=== PATIENT | male | born 1930 | race Caucasian/White ===

== ENCOUNTER 2019-03-28 14:12 | Emergency (ER) | payer MEDICARE, BC ==
[2019-03-28] MEDS ORDERED: Albuterol/Ipratropium 3.0-0.5 MG/3 ML Neb Soln NEB ONE (14:20)
[2019-03-28] MEDS ORDERED: Sodium Chloride 0.9% 1,000 ML IV ONE ×2 (14:45→17:24)
[2019-03-28] MEDS ORDERED: Sodium Chloride 0.9% 10 ML Syringe IV PRN (14:57)
[2019-03-28] MEDS ORDERED: cefTRIAXone 2 GM Vial IVPUSH ONE (14:58)
[2019-03-28] MEDS ORDERED: Acetaminophen 650 MG Supp RECTAL ONE (15:07)
[2019-03-28] MEDS ORDERED: Azithromycin 500 MG in Sodium Chloride 0.9% 250 ML IV ONE (15:08)
--- NOTE | 2019-03-28 15:22 | CR ---
[id number] RAD/RAD Chest PA or AP 1V EXAM: SINGLE VIEW CHEST. INDICATION: CHEST PAIN. SHORTNESS OF BREATH COMPARISON: NO PREVIOUS SIMILAR EXAM IS AVAILABLE FINDINGS: There is no pneumonia or edema. The cardiac silhouette is enlarged. The defibrillator is seen. IMPRESSION: NO PNEUMONIA OR EDEMA. Naresh Ramirez MD 03/28/19 3547 Thank you for allowing us to participate in the care of your patient.
[2019-03-28 15:30] LABS: CHLORIDE,CL 104 mmol/L (98-107); SODIUM,NA 143 mmol/L (136-145)
[2019-03-28 15:31] LABS: ANION GAP 13.9 mmol/L (10-20)
[2019-03-28] MEDS ORDERED: Furosemide 40 MG/4 ML VIAL IV ONE (15:39)
--- NOTE | 2019-03-28 16:46 | EDM.PDOC ---
ED HPI GENERAL MEDICAL PROBLEM - General Chief Complaint: Respiratory Problem Stated Complaint: shortness of breath, chest pain, abdominal pressure Time Seen by Provider: 03/28/19 14:25 Source of Information: Reports: Patient, Significant Other History Limitations: Reports: Respiratory Distress - History of Present Illness INITIAL COMMENTS - FREE TEXT/NARRATIVE: Pt arrived with his per private vehicle. Approximately 45 minutes prior to arrival he developed sudden onset of shortness of breath. He was eating chokecherries when he suddenly started having breathing difficulty. He had increasing problems and his brought him in per PV. Upon arrival he was dusky with labored breathing. He was shaking. His face was gio with dusky lips. He had difficulty speaking. He was transported to ER per wheelchair from car. I was summoned from adjacent room due to his SOB. Upon my arrival he was in severe distress. He was dyspneic and agitated and c/o pain; chest pain and abdominal pain. His face was gio, he was tachypneic with RR 44. Lung sounds were diminished with crackles heard most prominently in LLL. Later when he was sitting up he had crackles present through most posterior lobes. Abdomen was distended, firm. It was tender to palpation. BS diminished. No definite abdominal bruit. Legs with 4+ pitting edema in legs to level above knees. Pulses were palpable bilaterally. Skin color pale to feet but feet warm with capillary refill 3 seconds. He was initially not very verbal and likely confused. He then had large semi incontinent BM. This resolved his abdominal pain completely. His respiratory distress decreased. (He also had nebulizer). For the remainder of visit he was cooperative, in good spirits and for the most part oriented and appropriate. His respiratory distress improved. After he was up to commode for BM he had increased tachycardia. BP became hypotensive. EKG questionably A Fibrillation rate 150s. He denies chest pain. Order was given for wide open fluid boluses. Temp remained increased. (Please see NN for vitals) Considerations included pulmonary edema, PE, sepsis, aortic aneurism. Called [facility] Dr. Kahn for recommendations. He recommended sepsis protocol with 30 ml/kg fluid bolus, Rocephin and zithromax. These orders were given. Labs reviewed and were mostly unremarkable. CXR portable was reviewed which was poor quality due to body habitus and positioning. EKG shows ectopic sinus rhythm, ? a Fib. He was transferred to room with video for [facility] with Dr. Arley Kahn. At this point it was noted that fluids infused only totaled 250 ml which was initial bolus requested. He had received Rocephin 2 gr and zithromax 250 mg. After this infusion it was noted that he was more tachycardic and hypotensive so Zithromax was held. These antibiotics were chosen assuming respiratory source as pt was coughing up large amounts of discolored sputum. He had been given 40 mg IV lasix due to crackles, respiratory distress, CHF. To this point he had approx 250 ml of urine output. Transfer was arranged with [facility], Dr. Singh who accepted care of pt. Dr Arley Kahn per [facility] provided guidance including Norepinephrine dosing. Patient remained oriented and conversive throughout despite very low blood pressures. Manual BPs were also very low. (See vital record). With norepi drip and fluid he did have some improvement in his pulse and BP. Paramedics were now on scene and IV sites were changed due to infiltration. Patient was transferred per [facility] with hypotension and tachycardia which was improved slightly. Pt condition however was improved over initial evaluation. Pt conversive, appropriate and oriented X 3. Patient transferred in this condition per [facility] to [facility]. Onset: Today, Sudden Duration: Getting Worse Location: Reports: Chest, Abdomen Severity: Severe Improves with: Reports: None Worsens with: Reports: Movement Context: Reports: Activity Associated Symptoms: Reports: Chest Pain, cough w sputum, Shortness of Breath, Weakness Left Abdomen Pain Score (Numeric/FACES): 2 - Related Data Allergies Allergy/AdvReac Type Severity Reaction Status Date / Time lisinopril Allergy Cough Verified 03/28/19 19:38 pantoprazole [From Protonix] Allergy Other Verified 03/28/19 19:38 sitagliptin [From Januvia] Allergy Other Verified 03/28/19 19:38 spironolactone Allergy Other Verified 03/28/19 19:38 [From Aldactone] Home Meds: Home Meds Norepinephrine Bit/0.9 % NaCl [Norepinephr 4 mg/250-0.9% NaCl] 4 mg IV DAILY # 250 plast..bag 03/28/19 [Rx] ED ROS GENERAL - Review of Systems Review Of Systems: Unable To Obtain Constitutional: Reports: No Symptoms HEENT: Reports: No Symptoms Respiratory: Reports: Shortness of Breath, Cough, Sputum Cardiovascular: Reports: Chest Pain, Dyspnea on Exertion GI/Abdominal: Reports: Abdominal Pain, Distension : Reports: No Symptoms, Frequency Musculoskeletal: Reports: No Symptoms Skin: Reports: No Symptoms Neurological: Reports: No Symptoms Psychiatric: Reports: No Symptoms Hematologic/Lymphatic: Reports: No Symptoms Immunologic: Reports: No Symptoms ED EXAM, GENERAL - Physical Exam Exam: See Below Exam Limited By: No Limitations General Appearance: Anxious, Severe Distress, Obese Ears: Normal External Exam Nose: Normal Inspection Throat/Mouth: Normal Inspection Head: Atraumatic, Normocephalic Respiratory/Chest: Respiratory Distress, Decreased Breath Sounds, Crackles ( crackles scattered posterior mid to lower lobes bilaterally; ), Accessory Muscle Use, Other (decreased air exchange) Cardiovascular: Systolic Murmur, Irregularly Irregular Peripheral Pulses: 1+: Dorsalis Pedis (L), Dorsalis Pedis (R) GI/Abdominal: Distended, Guarding, Tender Extremities: No Pedal Edema Neurological: Inattentive Psychiatric: Anxious Skin Exam: Warm, Erythema Lymphatic: No Adenopathy Sepsis Event Note - Evaluation Sepsis Screening Result: Possible Sepsis Risk Current Stage of Sepsis: Severe Sepsis Possible Source of Sepsis: Pulmonary - Focused Exam Respiratory Effort Without Exertion: Abdominal Breathing, Labored Date Exam was Performed: 04/02/19 Time Exam was Performed: 13:49 EKG INTERPRETATION Rhythm: A-Fib Course - Vital Signs Text/Narrative:: Blood pressure initially high with mild tachycardia. He was extremely anxious and agitated and was tachypneic. He was restless; unable to lie still. O2 sat improved with nebulizer and oxygen. He was shaking which worsened. Temp increased to 101.6 by time of my exam. At this point he met Sepsis criteria. Prior to this there was no indication of history of infection. Temp was 101.6 at 1430. At this point he met sepsis criteria so Sepsis protocol was initiated. I conferred with [facility] Dr. Kahn and received recommendations. I conferred with [facility] sugar controller ID doctor and received recommendations. He was given Rocephin 2 gr IV as he did not have any indication of infection. After Rocephin was infused and fluids initiated he was up for a very large bowel movement which was partly in his pants and on the floor. He urinated on the floor. He was more settled after this bowel movement and his abdomen was less distended. He was given Acetaminophen suppository. He had increasing tachycardia and hypotension. (see flow sheet). However, he was now oriented and conversive and reports how much better he felt. He states that when he came in he was about 1" from dying. EKG shows A fib with rate in 150s. BP very low but he was alert, oriented and talking. His temp improved and then began to rise. He was coughing and spitting up sputum that caused him to choke or gag. He did report that he aspirates on food and coughs when eating at times. Patients blood pressure and tachycardia continued. I called [facility] and had pt transferred to video room. He remained stable, oriented and talkative throughout this time. He expressed gratitude that he felt so much better - even when BP was reading 70/38. Please refer to [facility] flow sheet and nurse notes for details of his vitals and treatment during this time. He was transported to [facility] by [facility] with Dr. Singh accepting care of pt. I conferred with him regarding treatment as well. His vitals remained critical including his tachypnea at time of transfer. He was on Norepinephrine drip. Pulmonary embolism was considered but seemed less likely due to his treatment with Eliquis. reports he is compliant with his medications. He was thought to more likely have community acquired pneumonia as he has not been hospitalized, on antibiotics or steroids for quite some time. His was present throughout his stay and was kept apprised and given emotional support throughout. Aortic aneurism was considered. CT was not obtained due to his critical condition. Following his bowel movement he remained pain free. He was no longer restless. He had brief period of being confused after moved to video room and thought he was in [place]. Last Recorded V/S: Last Vital Signs Temp 101.2 F H 03/28/19 16:00 Pulse 144 H 03/28/19 16:40 Resp 30 H 03/28/19 16:30 BP 88/62 L 03/28/19 16:40 Pulse Ox 96 03/28/19 16:20 - Orders/Labs/Meds Labs: Laboratory Tests 03/28/19 03/28/19 03/28/19 Range/Units 14:28 15:05 15:13 WBC 4.5 (4.0-10.0) x10^3/uL RBC 4.56 (4.5-6.0) x10^6/uL Hgb 14.3 (14.0-18.0) g/dL Hct 44.5 (40.0-52.0) % MCV 97.6 H (78.0-93.0) fL MCH 31.4 (26.0-32.0) pg MCHC 32.1 (32.0-36.0) g/dL RDW Coeff of Svitlana 15.3 H (10.0-15.0) % Plt Count 130 (130-400) x10^3/uL Neut % (Auto) 93.0 H (50.0-80.0) % Lymph % (Auto) 5.8 L (25.0-50.0) % [place] % (Auto) 0.4 L (2.0-11.0) % Eos % (Auto) 0.4 (0.0-4.0) % Baso % (Auto) 0.4 (0.2-1.2) % POC ABG pH 7.359 (7.35-7.45) POC ABG pCO2 36 (35-45) mmHG POC ABG pO2 88 (80-105) mmHG POC ABG HCO3 21 L (22-26) mmol/L POC ABG Total CO2 22 L (23-27) mmol/L POC ABG O2 Sat 96 (95-98) % POC ABG Base Excess -5 L (-2-3) mmol/L POC FiO2 1.00 Sodium (136-145) mmol/L Potassium (3.5-5.1) mmol/L Chloride (98-107) mmol/L Carbon Dioxide (21-32) mmol/L Anion Gap (10-20) mmol/L BUN (7-18) mg/dL Creatinine (0.70-1.30) mg/dL Est Cr Clr Drug Dosing Estimated GFR (MDRD) Glucose (74-106) mg/dL POC Glucose 92 (74-106) mg/dL Lactic Acid (0.4-2.0) mmol/L Calcium (8.5-10.1) mg/dL Corrected Calcium (8.5-10.1) mg/dL Total Bilirubin (0.2-1.0) mg/dL AST (15-37) U/L ALT (16-63) U/L Alkaline Phosphatase (46-116) U/L Troponin I (<=0.056) ng/mL C-Reactive Protein (<=0.9) mg/dL NT-Pro-B Natriuret Pep (<=450) pg/mL Total Protein (6.4-8.2) g/dL Albumin (3.4-5.0) g/dL Globulin Albumin/Globulin Ratio Lipase (73-393) U/L Urine Color (YELLOW) Urine Appearance (CLEAR) Urine pH (5.0-8.0) Ur Specific [place] Urine Protein (NEGATIVE) mg/dL Urine Glucose (UA) (NEGATIVE) mg/dL Urine Ketones (NEGATIVE) mg/dL Urine Occult Blood (NEGATIVE) Urine Nitrite (NEGATIVE) Urine Bilirubin (NEGATIVE) Urine Urobilinogen (0.2) EU/dL Ur Leukocyte Esterase (NEGATIVE) Urine RBC (NOT SEEN) /HPF Urine WBC (NOT SEEN) /HPF Ur Squamous Epith Cells (NEGATIVE) /HPF Urine Bacteria (NEGATIVE) /HPF Urine Mucus (NEGATIVE) /LPF 03/28/19 03/28/19 03/28/19 Range/Units 15:13 15:13 15:55 WBC (4.0-10.0) x10^3/uL RBC (4.5-6.0) x10^6/uL Hgb (14.0-18.0) g/dL Hct (40.0-52.0) % MCV (78.0-93.0) fL MCH (26.0-32.0) pg MCHC (32.0-36.0) g/dL RDW Coeff of Svitlana (10.0-15.0) % Plt Count (130-400) x10^3/uL Neut % (Auto) (50.0-80.0) % Lymph % (Auto) (25.0-50.0) % [place] % (Auto) (2.0-11.0) % Eos % (Auto) (0.0-4.0) % Baso % (Auto) (0.2-1.2) % POC ABG pH (7.35-7.45) POC ABG pCO2 (35-45) mmHG POC ABG pO2 (80-105) mmHG POC ABG HCO3 (22-26) mmol/L POC ABG Total CO2 (23-27) mmol/L POC ABG O2 Sat (95-98) % POC ABG Base Excess (-2-3) mmol/L POC FiO2 Sodium 143 (136-145) mmol/L Potassium 3.9 (3.5-5.1) mmol/L Chloride 104 (98-107) mmol/L Carbon Dioxide 29 (21-32) mmol/L Anion Gap 13.9 (10-20) mmol/L BUN 16 (7-18) mg/dL Creatinine 1.6 H (0.70-1.30) mg/dL Est Cr Clr Drug Dosing TNP Estimated GFR (MDRD) 41 Glucose 92 (74-106) mg/dL POC Glucose (74-106) mg/dL Lactic Acid 3.0 H* (0.4-2.0) mmol/L Calcium 8.8 (8.5-10.1) mg/dL Corrected Calcium 9.04 (8.5-10.1) mg/dL Total Bilirubin 1.0 (0.2-1.0) mg/dL AST 28 (15-37) U/L ALT 34 (16-63) U/L Alkaline Phosphatase 149 H (46-116) U/L Troponin I < 0.017 (<=0.056) ng/mL C-Reactive Protein 0.9 (<=0.9) mg/dL NT-Pro-B Natriuret Pep 2535 H (<=450) pg/mL Total Protein 7.3 (6.4-8.2) g/dL Albumin 3.7 (3.4-5.0) g/dL Globulin 3.6 Albumin/Globulin Ratio 1.03 Lipase 34 L (73-393) U/L Urine Color Light yellow (YELLOW) Urine Appearance Slightly cloudy H (CLEAR) Urine pH 5.5 (5.0-8.0) Ur Specific [place] 1.015 Urine Protein 30 H (NEGATIVE) mg/dL Urine Glucose (UA) Negative (NEGATIVE) mg/dL Urine Ketones Negative (NEGATIVE) mg/dL Urine Occult Blood Moderate H (NEGATIVE) Urine Nitrite Negative (NEGATIVE) Urine Bilirubin Negative (NEGATIVE) Urine Urobilinogen 0.2 (0.2) EU/dL Ur Leukocyte Esterase Negative (NEGATIVE) Urine RBC 10-20 H (NOT SEEN) /HPF Urine WBC 0-5 (NOT SEEN) /HPF Ur Squamous Epith Cells Rare (NEGATIVE) /HPF Urine Bacteria Occasional H (NEGATIVE) /HPF Urine Mucus Few H (NEGATIVE) /LPF Meds: Medications Discontinued Medications Generic Name Dose Route Start Last Admin Trade Name James PRN Reason Stop Dose Admin Acetaminophen 650 mg 03/28/19 15:07 03/28/19 15:57 Tylenol RECTAL 03/28/19 15:08 650 mg NOW ONE Administration Albuterol/Ipratropium 3 ml 03/28/19 14:20 03/28/19 14:22 Duoneb 3.0-0.5 Mg/3 Ml NEB 03/28/19 14:21 3 ml ONETIME ONE Administration Azithromycin 250 mg 03/28/19 17:16 03/28/19 17:20 Zithromax PO 03/28/19 17:17 250 mg ONETIME ONE Administration Ceftriaxone Sodium 2 gm 03/28/19 14:58 03/28/19 15:00 Rocephin IVPUSH 03/28/19 14:59 2 gm STAT ONE Administration Furosemide 40 mg 03/28/19 15:39 03/28/19 15:55 Lasix IV 03/28/19 15:40 40 mg ONETIME ONE Administration Sodium Chloride 1,000 mls @ 999 mls/hr 03/28/19 14:45 03/28/19 14:45 Normal Saline IV 03/28/19 15:45 999 mls/hr ASDIRECTED ONE Administration Azithromycin 500 mg/ Sodium 250 mls @ 250 mls/hr 03/28/19 15:08 03/28/19 16: 07 Chloride IV 03/28/19 16:07 250 mls/hr STAT ONE Administration Sodium Chloride 1,000 mls @ 999 mls/hr 03/28/19 17:24 03/28/19 17:08 Normal Saline IV 03/28/19 18:24 999 mls/hr ONETIME ONE Administration Norepinephrine Bitartrate Confirm 03/28/19 17:04 03/28/19 17:10 Levophed Administered 03/28/19 17:05 4 mg Dose Administration 4 mg .ROUTE .STK-MED ONE Sodium Chloride 10 ml 03/28/19 14:57 Saline Flush IV ASDIRECTED PRN Keep Vein Open Sodium Chloride 10 ml 03/28/19 17:24 Saline Flush FLUSH ASDIRECTED PRN Keep Vein Open - Re-Assessments/Exams Free Text/Narrative Re-Assessment/Exam: 03/28/19 20:10 I remained with patient throughout his stay due to the instability of his condition and critical and changing nature nature of his condition Departure - Departure Time of Disposition: 17:24 Disposition: DC/Tfer to [facility] 02 Clinical Impression: Sepsis associated hypotension - Discharge Information *PRESCRIPTION DRUG MONITORING PROGRAM REVIEWED*: Not Applicable *COPY OF PRESCRIPTION DRUG MONITORING REPORT IN PATIENT HILARIO: Not Applicable Prescriptions: Norepinephrine Bit/0.9 % NaCl [Norepinephr 4 mg/250-0.9% NaCl] 4 mg IV DAILY # 250 plast..bag Referrals: Trever Portillo MD [Primary Care Provider] - Forms: ED Department Discharge, Interfacility Transfer [facility] ED Communication - Discussed Case With (1) Person/s Notified (1): Dr Kahn at [facility] Person/s Notified (2): Dr. Singh at [facility] - Problem List & Annotations (1) Sepsis associated hypotension SNOMED Code(s): 93318570 Code(s): A41.9 - SEPSIS, UNSPECIFIED ORGANISM; I95.9 - HYPOTENSION, UNSPECIFIED Status: Acute Priority: High - Problem List Review Problem List Initiated/Reviewed/Updated: Yes - Assessment/Plan Assessment:: Sepsis Plan: Transfer to [facility] per [facility]
[2019-03-28] MEDS ORDERED: Norepinephrine 4 MG/4 ML SDV ONE (17:04)
[2019-03-28] MEDS ORDERED: Norepinephrine 4 MG in Dextrose 5% in Water 246 ML IV SCH ×2 (17:10)
[2019-03-28] MEDS ORDERED: Azithromycin 250 MG Tab PO ONE (17:16)
[2019-03-28] MEDS ORDERED: Sodium Chloride 0.9% 10 ML Syringe FLUSH PRN (17:24)
== END 2019-03-28 17:24 | disposition short-term general hospital (02) ==
LOC: VM.ED 14:12
DX: A41.9 Sepsis, unspecified organism (principal); Z88.8 Allergy status to other drugs, medicaments and biological substances
CPT/HCPCS: 36415; 36600; 51702; 71045; 80053; 81001; 82803; 82962; 83605; 83690; 83880; 84484; 85025; 86140; 87040; 87077; 87186; 93005; 94640; 96365; 96366; 96375; 99283; 99291; 99292; A9270; J0456; J0696; J1940; J7030; J7050; 87088; J7620-GY